=== PATIENT | male | born 1950 | race Two or more races ===

== ENCOUNTER 2017-07-01 11:53 | Emergency (ER) | payer MEDICAID ==
[~2017-07-01] VITALS: Ht 180.3 cm; Wt 100.0 kg
[2017-07-01 15:01] VITALS: BP 151/82
== END 2017-07-01 15:54 | disposition home or self-care (01) ==
LOC: ER 14:23
DX: J02.0 Streptococcal pharyngitis (principal); R03.0 Elevated blood-pressure reading, without diagnosis of hypertension
CPT/HCPCS: 99283

== ENCOUNTER 2019-08-31 12:13 | Emergency (ER) | payer MEDICAID ==
[~2019-08-31] VITALS: Ht 167.6 cm; Wt 89.0 kg
[2019-08-31 15:04] LABS: HEMATOCRIT. 43.1 % (42.0-52.0); HEMOGLOBIN. 15.1 g/dL (14.0-18.0); MEAN CORPUSCULAR HEMOGLOBIN 32.6 pg (28.0-32.0); MEAN PLATELET VOLUME 8.5 fl (7.4-10.4); PLATELET 180 x1000/uL (130-400); RED BLOOD CELL COUNT 4.63 mill/uL (4.7-6.1); RED CELL DISTRIBUTION WIDTH 13.3 % (11.6-14.6)
[2019-08-31 15:04] LABS: CLARITY URINE CLEAR (CLEAR); COLOR URINE YELLOW (YELLOW); KETONES URINE 1+ (NEGATIVE); LEUKOCYTE ESTERASE URINE NEGATIVE (NEGATIVE); NITRITE URINE NEGATIVE (NEGATIVE); OCCULT BLOOD URINE 1+ (NEGATIVE); PH URINE 6.5 (4.5-8.0); PROTEIN URINE 1+ (NEGATIVE); SPECIFIC GRAVITY URINE 1.013 (1.005-1.030); UROBILINOGEN URINE 0.2 E.U./dL (0.2-1.0)
[2019-08-31 15:07] LABS: CHLORIDE 107 mEq/L (98-107)
[2019-08-31 16:08] VITALS: BP 140/90
[2019-08-31 16:11] LABS: PLATELET ESTIMATE NORMAL
== END 2019-08-31 16:30 | disposition home or self-care (01) ==
LOC: ER 12:17
DX: R33.9 Retention of urine, unspecified (principal); R10.30 Lower abdominal pain, unspecified; R00.0 Tachycardia, unspecified; Z87.438 Personal history of other diseases of male genital organs
CPT/HCPCS: 36415; 51702; 80053; 81003; 85025; 99284; Z7610

== ENCOUNTER 2019-09-04 12:01 | Emergency (ER) | payer MEDICAID ==
[~2019-09-04] VITALS: Ht 165.1 cm; Wt 89.0 kg
[2019-09-04 15:41] LABS: CLARITY URINE TURBID (CLEAR); COLOR URINE YELLOW (YELLOW); KETONES URINE 1+ (NEGATIVE); LEUKOCYTE ESTERASE URINE 1+ (NEGATIVE); NITRITE URINE NEGATIVE (NEGATIVE); OCCULT BLOOD URINE 3+ (NEGATIVE); PROTEIN URINE 2+ (NEGATIVE); SPECIFIC GRAVITY URINE 1.016 (1.005-1.030); UROBILINOGEN URINE 0.2 E.U./dL (0.2-1.0)
[2019-09-04 17:15] VITALS: BP 140/87
== END 2019-09-04 17:25 | disposition home or self-care (01) ==
LOC: ER 12:01
DX: R31.29 Other microscopic hematuria (principal); Z46.6 Encounter for fitting and adjustment of urinary device; N40.0 Benign prostatic hyperplasia without lower urinary tract symptoms
CPT/HCPCS: 81003; 99283